=== PATIENT | male | born 1950 | race American Indian/Alaskan Native ===

== ENCOUNTER 2021-04-09 00:12 | Inpatient (IN) | payer MEDICARE, MEDICAID ==
[2021-04-16 15:08] VITALS: BP 134/82
== END 2021-04-16 18:10 | disposition home health service (06) | DRG 177 ==
LOC: SUATTDRO 00:12 → ED 00:12 → 3A 05:09 → OBSVTOIN 04-11 11:13
PROVIDERS: ADMIT Internal Medicine Geriatric Medicine; ATTEND Internal Medicine
PROC: XW033E5 Introduction of Remdesivir Anti-infective into Peripheral Vein, Percutaneous Approach, New Technology Group 5 (ICD-10-PCS; principal; 2021-04-10)
DX: U07.1 COVID-19 (principal); J12.82 Pneumonia due to coronavirus disease 2019; J96.01 Acute respiratory failure with hypoxia; N17.8 Other acute kidney failure; N17.9 Acute kidney failure, unspecified; D69.6 Thrombocytopenia, unspecified; D72.819 Decreased white blood cell count, unspecified; Z79.899 Other long term (current) drug therapy; Z79.891 Long term (current) use of opiate analgesic; Z79.01 Long term (current) use of anticoagulants; Z71.6 Tobacco abuse counseling
CPT/HCPCS: 36415; 71046; 80048; 80053; 83735; 83880; 84145; 84484; 85007; 85025; 85027; 93005; 94760; G0378; J0360; J0456; J0696; J1100; J7030; J7050; U0003